=== PATIENT | female | born 1990 | race African-American/Black ===

== ENCOUNTER 2017-06-21 00:55 | Emergency (ER) | payer SELFPAY ==
[~2017-06-21] VITALS: Ht 160 cm; Wt 85.0 kg
[2017-06-21] MEDS ORDERED: KETOROLAC 30MG/ML VIAL IV ONE (01:45)
[2017-06-21] MEDS ORDERED: PROCHLORPERAZINE MALEATE 10MG TABLET PO ONE (01:45)
[2017-06-21] MEDS ORDERED: DEXAMETHASONE 0.5MG/5ML ORAL SYR PO ONE (01:45)
[2017-06-21] MEDS ORDERED: DEXAMETHASONE 10 MG/ML VIAL PO SCH (02:03)
[2017-06-21 02:15] LABS: UCG SCREEN NEGATIVE
[2017-06-21 03:45] VITALS: BP 107/74
== END 2017-06-21 04:09 | disposition home or self-care (01) ==
LOC: ER 00:55
DX: R55 Syncope and collapse (principal); R51 Headache; J45.909 Unspecified asthma, uncomplicated; H53.149 Visual discomfort, unspecified; F17.200 Nicotine dependence, unspecified, uncomplicated; Z88.0 Allergy status to penicillin
CPT/HCPCS: 70450; 81025; 93005; 96374; 99285; J1100; J1885; Z7610; J8540; Q0164

== ENCOUNTER 2018-03-27 13:08 | Observation (INO) | payer MEDICAID ==
[~2018-03-27] VITALS: Ht 160 cm; Wt 126.1 kg
[2018-03-27] MEDS ORDERED: ALBU6.7H INH (13:46)
[2018-03-27] MEDS ORDERED: PNV1TABL50 PO (13:46)
[2018-03-27] MEDS ORDERED: LACTATED RINGERS 1,000 ML IV SCH (14:15)
== END 2018-03-27 16:45 | disposition home or self-care (01) ==
LOC: 8 EST LDRP 13:08
PROVIDERS: ADMIT Obstetrics & Gynecology; ATTEND Obstetrics & Gynecology
DX: O26.853 Spotting complicating pregnancy, third trimester (principal); O26.893 Other specified pregnancy related conditions, third trimester; R10.30 Lower abdominal pain, unspecified; M54.9 Dorsalgia, unspecified; N89.8 Other specified noninflammatory disorders of vagina; Z3A.37 37 weeks gestation of pregnancy
CPT/HCPCS: 76815; 76818; 99281; G0378; 96360; 96361

== ENCOUNTER → 2018-09-29 | Emergency (ER) | payer MEDICAID ==
[~2018-09-29] VITALS: Ht 160 cm; Wt 118.0 kg
[~2018-09-29] MED LIST: ALBU6.7H INH; PNV1TABL50 PO
[2018-09-29 17:12] VITALS: BP 134/112
== END | disposition left against medical advice (07) ==
LOC: ER 16:35
DX: K08.89 Other specified disorders of teeth and supporting structures (principal); Z53.21 Procedure and treatment not carried out due to patient leaving prior to being seen by health care provider

== ENCOUNTER → 2019-07-22 | Outpatient (CLI) | payer MEDICAID ==
[~2019-07-22] MED LIST changes: -ALBU6.7H INH; +ALBU6.7H11 INH; +EPHEDRINE SULFATE 50MG/ML VIAL ONE; +FERR325T6 MT; +GLYCOPYRROLATE 0.2 MG/ML 2ML VIAL ONE; +IBUP-2029 MT; +IBUP-2030 PO; +LEVO500T2 MT; +METOCLOPRAMIDE HCL 10MG/2ML VIAL ONE; +MORPHINE SULFATE/PF 1MG/ML 10ML AMP ONE; +ONDANSETRON HCL 4MG/2ML INJ ONE; +PHENYLEPHRINE HCL 10 MG/ML 1ML (IV VIAL) IV ONE; +SULF1TAB48 MT; +TOPUD PO
== END | disposition home or self-care (01) ==
LOC: LAB 11:01
PROVIDERS: ATTEND Obstetrics & Gynecology
DX: Z01.818 Encounter for other preprocedural examination (principal); Z11.59 Encounter for screening for other viral diseases
CPT/HCPCS: U0003-CS

== ENCOUNTER 2019-08-09 12:16 | Inpatient (IN) | payer MEDICAID ==
[~2019-08-09] VITALS: Ht 160 cm; Wt 129.7 kg
[~2019-08-09 12:16] MED LIST changes: -EPHEDRINE SULFATE 50MG/ML VIAL ONE; -GLYCOPYRROLATE 0.2 MG/ML 2ML VIAL ONE; -IBUP-2029 MT; -LEVO500T2 MT; -METOCLOPRAMIDE HCL 10MG/2ML VIAL ONE; -MORPHINE SULFATE/PF 1MG/ML 10ML AMP ONE; -ONDANSETRON HCL 4MG/2ML INJ ONE; -PHENYLEPHRINE HCL 10 MG/ML 1ML (IV VIAL) IV ONE; -SULF1TAB48 MT
[2019-08-09] MEDS ORDERED: SODIUM CHLORIDE 0.9% 1,000 ML IV ONE (13:00)
[2019-08-09 14:21] LABS: BASOPHILS % 0.5 % (0.0-2.0); EOSINOPHILS % 2.8 % (0.0-5.0); HEMATOCRIT. 35.8 % (36.0-48.0); HEMOGLOBIN. 11.8 g/dL (12.0-16.0); LYMPHOCYTES % 54.8 % (20.0-50.0); MEAN CORPUSCULAR HEMOGLOBIN 27.7 pg (28.0-32.0); MEAN CORPUSCULAR VOLUME 84.2 fL (81.0-99.0); MEAN PLATELET VOLUME 8.6 fl (7.4-10.4); MONOCYTES % 11.1 % (2.0-8.0); NEUTROPHILS % 30.8 % (40.0-76.0); PLATELET 277 x1000/uL (130-400); RED BLOOD CELL COUNT 4.25 mill/uL (4.2-5.4); RED CELL DISTRIBUTION WIDTH 15.5 % (11.6-14.6)
[2019-08-09 14:26] LABS: CHLORIDE 106 mEq/L (98-107)
[2019-08-09 14:29] LABS: PROTHROMBIN TIME 10.4 sec (9.6-11.0)
[2019-08-09 15:59] LABS: CLARITY URINE CLEAR (CLEAR); COLOR URINE YELLOW (YELLOW); KETONES URINE NEGATIVE (NEGATIVE); LEUKOCYTE ESTERASE URINE NEGATIVE (NEGATIVE); NITRITE URINE NEGATIVE (NEGATIVE); OCCULT BLOOD URINE NEGATIVE (NEGATIVE); PROTEIN URINE NEGATIVE (NEGATIVE); SPECIFIC GRAVITY URINE 1.024 (1.005-1.030)
[2019-08-09 16:27] LABS: PHENCYCLIDINE URINE SCREEN NEGATIVE (NEGATIVE)
[2019-08-09 16:28] LABS: *AMPHETAMINES SCREEN URINE NEGATIVE (NEGATIVE); *BARBITURATES SCREEN URINE NEGATIVE (NEGATIVE); *BENZODIAZEPINES SCREEN URINE NEGATIVE (NEGATIVE); *COCAINE SCREEN URINE NEGATIVE (NEGATIVE); METHADONE URINE SCREEN NEGATIVE (NEGATIVE)
[2019-08-09 16:37] LABS: CANNABINOID URINE SCREEN PRESUMTIVE POSITIVE (NEGATIVE); OPIATES URINE SCREEN PRESUMTIVE POSITIVE (NEGATIVE)
[2019-08-09] MEDS ORDERED: MORPHINE SULFATE 2 MG/ML CPJ (NOT FOR IM USE) IV ONE (17:00)
[2019-08-09] MEDS ORDERED: LEVOFLOXACIN 500MG PREMIX 100 ML IV ONE (17:30)
[2019-08-09 21:00] VITALS: BP 122/70
[2019-08-09] MEDS ORDERED: MORPHINE SULFATE 2 MG/ML CPJ (NOT FOR IM USE) IV PRN (22:15)
[2019-08-10] VITALS: BP 124/87
[2019-08-10] MEDS ORDERED: VANCOMYCIN 1,750 MG in DEXT 5% WATER 500 ML IV SCH ×2
[2019-08-10] MEDS: HYDROCODONE/ACETAMINOPHEN 5/325MG TABLET PO PRN ×3 (00:14→21:59)
[2019-08-10 04:00] VITALS: BP 120/80
[2019-08-10 07:48] VITALS: BP 119/82
[2019-08-10] MEDS: ENOXAPARIN 30MG/0.3ML SYR SUBCUT SCH ×2 (08:46→21:58)
[2019-08-10] MEDS: VANCOMYCIN 1500MG in DEXTROSE 5% WATER 250ML IV SCH (11:09)
[2019-08-10 12:00] VITALS: BP 100/81
[2019-08-10] MEDS ORDERED: VANCOMYCIN 1500MG in DEXTROSE 5% WATER 250ML IV SCH (13:00)
[2019-08-10] MEDS ORDERED: LEVOFLOXACIN 500MG PREMIX 100 ML IV SCH (14:00)
[2019-08-10 15:51] VITALS: BP 100/70
[2019-08-10 20:16] VITALS: BP 139/77
[2019-08-11 00:11] VITALS: BP 112/61
[2019-08-11] MEDS: VANCOMYCIN 1500MG in DEXTROSE 5% WATER 250ML IV SCH (00:23)
[2019-08-11 04:29] VITALS: BP 117/72
[2019-08-11 06:01] LABS: CHLORIDE 107 mEq/L (98-107)
[2019-08-11 08:00] VITALS: BP 130/85
[2019-08-11] MEDS: ENOXAPARIN 30MG/0.3ML SYR SUBCUT SCH (09:00)
[2019-08-11 09:01] VITALS: BP 130/85
[2019-08-11] MEDS ORDERED: IBUP-2029 MT (10:26)
[2019-08-11] MEDS ORDERED: LEVO500T2 MT (10:26)
[2019-08-11] MEDS ORDERED: SULF1TAB48 MT (10:26)
== END 2019-08-11 09:41 | disposition home or self-care (01) | DRG 383 ==
LOC: ER 12:16 → EDBEDREQ 17:32 → EDBEDREQTM 17:32 → ENRESERV 18:54 → 6WST 21:11
PROVIDERS: ADMIT Internal Medicine; ATTEND Internal Medicine
DX: L03.311 Cellulitis of abdominal wall (principal); E44.0 Moderate protein-calorie malnutrition; J45.909 Unspecified asthma, uncomplicated; F12.90 Cannabis use, unspecified, uncomplicated; E66.9 Obesity, unspecified; Z68.43 Body mass index [BMI] 50.0-59.9, adult; Z88.0 Allergy status to penicillin; Z79.1 Long term (current) use of non-steroidal anti-inflammatories (NSAID); Z79.899 Other long term (current) drug therapy; Z98.891 History of uterine scar from previous surgery
CPT/HCPCS: 36415; 74176; 80048; 80053; 80202; 80305; 81003; 83605; 85025; 87070; 87077; 87186; 96365; 99285; J1650; J1956; J2270; J3370; J7030; J7060